=== PATIENT | female | born 1995 | race Caucasian/White ===

== ENCOUNTER 2016-12-14 19:04 | Emergency (ER) | payer MEDICAID, OTHER ==
[~2016-12-14] VITALS: Ht 160 cm; Wt 44.4 kg
[2016-12-14] MEDS ORDERED: DEXAMETHASONE 4 MG TABLET ONE (19:48)
[2016-12-14] MEDS ORDERED: ACETAMINOPHEN 325 MG TABLET ONE (19:48)
[2016-12-14] MEDS ORDERED: DEXAMETHASONE 4 MG TABLET PO ONE (20:00)
[2016-12-14] MEDS ORDERED: ACETAMINOPHEN 325 MG TABLET PO ONE (20:00)
[2016-12-14 20:40] VITALS: BP 116/61
== END 2016-12-14 20:43 | disposition home or self-care (01) ==
LOC: ED 20:32
DX: J02.0 Streptococcal pharyngitis (principal); B00.2 Herpesviral gingivostomatitis and pharyngotonsillitis
CPT/HCPCS: 99283